=== PATIENT | female | born 1965 | race African-American/Black ===

== ENCOUNTER 2018-06-22 22:37 | Emergency (ER) | payer OTHER ==
[~2018-06-22] VITALS: Ht 165.1 cm; Wt 109.0 kg
[2018-06-23] MEDS ORDERED: KETOROLAC 60MG/2ML VIAL IM ONE (02:00)
[2018-06-23 02:53] LABS: BASOPHILS % 0.6 % (0.0-2.0); EOSINOPHILS % 0.6 % (0.0-5.0); HEMATOCRIT. 40.4 % (36.0-48.0); HEMOGLOBIN. 13.5 g/dL (12.0-16.0); LYMPHOCYTES % 22.9 % (20.0-50.0); MEAN CORPUSCULAR HEMOGLOBIN 30.3 pg (28.0-32.0); MEAN CORPUSCULAR VOLUME 90.7 fL (81.0-99.0); MEAN PLATELET VOLUME 8.6 fl (7.4-10.4); MONOCYTES % 9.2 % (2.0-8.0); NEUTROPHILS % 66.7 % (40.0-76.0); PLATELET 222 x1000/uL (130-400); RED BLOOD CELL COUNT 4.45 mill/uL (4.2-5.4)
[2018-06-23 03:00] LABS: CHLORIDE 102 mEq/L (98-107)
[2018-06-23 04:15] LABS: CLARITY URINE CLEAR (CLEAR); COLOR URINE YELLOW (YELLOW); KETONES URINE NEGATIVE (NEGATIVE); LEUKOCYTE ESTERASE URINE NEGATIVE (NEGATIVE); NITRITE URINE NEGATIVE (NEGATIVE); OCCULT BLOOD URINE NEGATIVE (NEGATIVE); PROTEIN URINE NEGATIVE (NEGATIVE); SPECIFIC GRAVITY URINE 1.012 (1.005-1.030); UROBILINOGEN URINE 0.2 E.U./dL (0.2-1.0)
[2018-06-23 06:26] VITALS: BP 142/85
== END 2018-06-23 06:26 | disposition home or self-care (01) ==
LOC: ER 22:37
DX: R42 Dizziness and giddiness (principal); I10 Essential (primary) hypertension; R51 Headache; M54.30 Sciatica, unspecified side; Z98.890 Other specified postprocedural states
CPT/HCPCS: 36415; 71045; 80053; 81003; 84484; 85025; 93005; 96372; 99284; J1885

== ENCOUNTER 2024-12-23 16:41 | Emergency (ER) | payer SELFPAY ==
[~2024-12-23] VITALS: Ht 165.1 cm; Wt 100.0 kg
[2024-12-23 16:53] VITALS: BP 143/93; PULSE 78; RESP 18; TEMP 37.1; O2SAT 100; O2SAT 98
[2024-12-24] MEDS ORDERED: CYCL10TA21 MT (12:42)
[2024-12-24] MEDS ORDERED: IBUP-1455 MT (12:42)
[2024-12-24] MEDS ORDERED: LIDO700A30 TP (12:42)
== END 2024-12-23 18:23 | disposition left against medical advice (07) ==
LOC: ER 16:41
DX: Z53.21 Procedure and treatment not carried out due to patient leaving prior to being seen by health care provider (principal)

== ENCOUNTER 2024-12-24 09:59 | Emergency (ER) | payer SELFPAY ==
[~2024-12-24] VITALS: Ht 165.1 cm; Wt 128.0 kg
[2024-12-24 10:14] VITALS: O2SAT 100
[2024-12-24] MEDS ORDERED: IBUPROFEN 600MG TABLET PO ONE (11:00)
[2024-12-24] MEDS: LIDOCAINE 5% PATCH TOP STA (12:16)
[2024-12-24] MEDS: KETOROLAC 30MG/ML VIAL IM ONE (12:18)
[2024-12-24] MEDS ORDERED: LIDO700A30 TP (12:42)
[2024-12-24] MEDS ORDERED: IBUP-1455 MT (12:42)
[2024-12-24] MEDS ORDERED: CYCL10TA21 MT (12:42)
[2024-12-24 13:11] VITALS: BP 189/100; PULSE 76; RESP 16; TEMP 36.6; O2SAT 100
== END 2024-12-24 13:12 | disposition home or self-care (01) ==
LOC: ER 09:59
DX: M54.2 Cervicalgia (principal); M17.11 Unilateral primary osteoarthritis, right knee; I10 Essential (primary) hypertension
CPT/HCPCS: 72040; 73560; 96372; 99284; J1885; Z7610 ×2